=== PATIENT | male | born 1980 | race Caucasian/White ===

== ENCOUNTER 2023-05-13 14:56 | Emergency (ER) | payer SELFPAY ==
[2023-05-13 15:15] VITALS: BP 138/87; PULSE 91
[2023-05-13] MEDS ORDERED: Ketorolac 30 MG/ML SDV IM ONE (15:32)
[2023-05-13] MEDS ORDERED: Acetaminophen 500 MG Tab PO ONE (15:32)
[2023-05-13] MEDS ORDERED: Take Home: Amoxicillin/Clavulanate K 875-125 MG Tab, 6 Tab Pack PO ONE (16:02)
== END 2023-05-13 16:10 | disposition home or self-care (01) ==
LOC: DL.ED 14:56
DX: K04.7 Periapical abscess without sinus (principal); F17.210 Nicotine dependence, cigarettes, uncomplicated
CPT/HCPCS: 64400; 96372; 99282; A9270-GY; J1885